=== PATIENT | female | born 1935 | race Caucasian/White ===

== ENCOUNTER 2017-01-08 06:50 | Day surgery (SDC) | payer MEDICARE ==
--- NOTE | 2017-01-08 07:44 | Operative Note ---
Surgeon/Diagnoses Surgeon/Electromedical Equipment Repairer(s) Date of procedure: 01/08/17 Surgeon: MD Margret Laurent Diagnoses Pre-op diagnosis: Pyloric channel ulcerations Gastritis Sliding hiatal hernia Post-op diagnosis Same Procedure Procedure Procedure: Esophagogastroduodenoscopy with biopsy Indications: RODOLFO ARIAS is a 81 year-old Female with a history of allergen ulcerations, fairly significant gastritis, and a somewhat significant sliding hiatal hernia. She returns for short-term repeat esophagogastroduodenoscopy as she remains on proton pump inhibition, as well as Carafate. She has no current complaints. Findings: Significant inflammatory response in and around the pyloric channel remains Ulcerations healed Overall, degree of gastritis significantly improved Procedure Description: After informed consent was obtained, the patient was taken to the endoscopy suite. IV sedation ensued after she was transferred to the LEFT lateral decubitus position. The gastroscope was advanced. The stomach was entered. Gastritis was noted, but the degree of inflammation was improved versus prior evaluation. Close inspection of the pyloric channel revealed fairly significant inflammatory response, but no ulcerations were seen. Biopsies were obtained of the pyloric channel, as well as the antrum. The gastroscope was carefully removed and the patient was transferred to recovery. EBL (ml): 1 Anesthesia: IV sedation with 4 mg of Versed and 100 g of fentanyl Complications: No immediate Specimens: Pyloric channel biopsy Antral biopsy Disposition Disposition: Stable to recovery from where she will be discharged home. She will follow-up in one week. at 0743
[2017-01-08 14:09] VITALS: BP 103/65
== END 2017-01-08 08:45 | disposition home or self-care (01) ==
LOC: SDC 06:50
PROVIDERS: Surgery
PROC: 0DB78ZX Excision of Stomach, Pylorus, Via Natural or Artificial Opening Endoscopic, Diagnostic (ICD-10-PCS; principal; 2017-01-08 07:30)
DX: K29.00 Acute gastritis without bleeding (principal); K44.9 Diaphragmatic hernia without obstruction or gangrene